=== PATIENT | female | born 1995 | race Caucasian/White ===

== ENCOUNTER 2018-09-05 18:06 | Emergency (ER) | payer SELFPAY ==
[~2018-09-05] VITALS: Ht 172.7 cm; Wt 74.8 kg
[2018-09-05] MEDS ORDERED: IV NORMAL SALINE 1000ML BAG 1,000 ML IV ONE (18:30)
[2018-09-05 18:38] LABS: BILIRUBIN,URINE NEGATIVE (NEG); CLARITY,URINE CLOUDY; COLOR,URINE YELLOW; NITRITE,URINE NEGATIVE (NEG); PH,URINE 6.5; PROTEIN,URINE 30 mg/dL (NEG-TRACE)
--- NOTE | 2018-09-05 18:42 | PHYS DOC ---
Past Medical History Past Medical History: Anxiety Additional Past Medical Histor: Drug abuse Past Surgical History: Appendectomy, Tubal ligation Additional Information: Nonsmoker Alcohol Use: None Drug Use: Methamphetamine Adult General Chief Complaint Chief Complaint: MULTIPLE COMPLAINTS HPI HPI 23-year-old female presents with 3 week history of intermittent episodes of p alpitations and right-sided numbness. Patient reports has been worse over the last 3-4 days. Reports she has been seen twice at [facility] in the emergency department and was diagnosed with anxiety/panic attacks. Patient reports she does think anxiety is causing some of her symptoms but is concerned that there might be something more. Patient does report symptoms seemed to worsen after patient uses methamphetamines. Patient also reports difficulty having a bowel movement. Denies known trauma. Denies . Reports her last menstrual period was approximately 3-1/2 weeks ago. Patient does report prior tubal ligation. Patient reports she has not followed with anyone after ER evaluations due to lack of insurance. She reports concern after looking up symptoms on [employer]. Review of Systems Review of Systems Constitutional: Denies fever or chills Eyes: Denies redness or eye pain HENT: Denies nasal congestion or sore throat Respiratory: Denies cough or shortness of breath Cardiovascular: Denies chest pain; reports prior palpitations which are now resolved GI: Denies abdominal pain, nausea, or vomiting; reports constipation. : Denies dysuria or hematuria Musculoskeletal: Denies back pain or joint pain Integument: Denies rash or skin lesions Neurologic: Denies headache or focal weakness; reports numbness/paresthesias to right arm and leg Complete systems were reviewed and found to be within normal limits, except as documented in this note. Current Medications Current Medications Current Medications Medications (Trade) Dose Ordered Sig/Devon Start Time Stop Time Status Last Admin Dose Admin Info (CONTRAST GIVEN -- Rx MONITORING) 1 each PRN DAILY PRN 09/05/18 20:30 09/07/18 20:29 Iohexol (Omnipaque 350 Mg/ml) 75 ml 1X ONCE 09/05/18 20:30 09/05/18 20:31 DC 09/05/18 20:49 75 ML Lorazepam (Ativan Inj) 0.5 mg 1X ONCE 09/05/18 20:45 09/05/18 20:46 DC 09/05/18 20:42 0.5 MG Sodium Chloride 1,000 ml @ 1,000 mls/hr 1X ONCE 09/05/18 18:30 09/05/18 19:29 DC 09/05/18 19:22 1,000 MLS/HR Allergies Allergies Allergies Coded Allergies Type Severity Reaction Last Updated Verified No Known Drug Allergies 09/05/18 No Physical Exam Physical Exam Constitutional: Well developed, well nourished, very anxious and hyperverbal, no n-toxic appearance HENT: Normocephalic, atraumatic, oropharynx moist Eyes: PERRL, EOMI, conjunctiva normal, no discharge Neck: Normal range of motion, no tenderness, supple Cardiovascular: Heart rate normal, regular rhythm Lungs & Thorax: Bilateral breath sounds clear to auscultation, no wheezing Abdomen: Soft, no tenderness, no rebound tenderness/guarding/distention Rectal: NO external hemorrhoid, scant hard stool noted in rectal vault, good rectal tone, retail salesperson- Allie EDT Skin: Warm, dry, no erythema, no rash Back: No tenderness, no CVA tenderness Extremities: No tenderness, ROM intact, no edema Neurologic: Alert and oriented X 3, normal motor function, no focal deficits noted, reports decreased sensation to right hand in comparison to left hand Psychologic: Affect anxious, judgement normal Current Patient Data Vital Signs Vital Signs Date Time Temp Pulse Resp B/P (MAP) Pulse Ox O2 Delivery O2 Flow Rate FiO2 09/05/18 19:00 97.8 100 20 138/89 (105) 100 Room Air 97.8 Lab Values Laboratory Tests Test 09/05/18 18:19 09/05/18 18:22 09/05/18 18:59 09/05/18 19:50 Urine Collection Type Void Urine Color Yellow Urine Clarity Cloudy Urine pH 6.5 Urine Specific Keller >=1.030 Urine Protein 30 mg/dL (NEG-TRACE) Urine Glucose (UA) Negative mg/dL (NEG) Urine Ketones (Stick) Negative mg/dL (NEG) Urine Blood Negative (NEG) Urine Nitrite Negative (NEG) Urine Bilirubin Negative (NEG) Urine Urobilinogen Dipstick 1.0 mg/dL (0.2 mg/dL) Urine Leukocyte Esterase Moderate (NEG) Urine RBC Occ /HPF (0-2) Urine WBC 20-40 /HPF (0-4) Urine Squamous Epithelial Cells Many /LPF Urine Bacteria Moderate /HPF (0-FEW) Urine Mucus Slight /LPF Urine Opiates Screen Neg (NEG) Urine Methadone Screen Neg (NEG) Urine Barbiturates Neg (NEG) Urine Phencyclidine Screen Neg (NEG) Urine Amphetamine/Methamphetamine Pos (NEG) Urine Benzodiazepines Screen Neg (NEG) Urine Cocaine Screen Neg (NEG) Urine Cannabinoids Screen Neg (NEG) Urine Ethyl Alcohol Neg (NEG) POC Urine HCG, Qualitative Hcg negative (Negative) White Blood Count 5.9 x10^3/uL (4.0-11.0) Red Blood Count 4.23 x10^6/uL (3.50-5.40) Hemoglobin 11.5 g/dL (12.0-15.5) L Hematocrit 34.5 % (36.0-47.0) L Mean Corpuscular Volume 82 fL (79-100) Mean Corpuscular Hemoglobin 27 pg (25-35) Mean Corpuscular Hemoglobin Concent 33 g/dL (31-37) Red Cell Distribution Width 15.1 % (11.5-14.5) H Platelet Count 223 x10^3/uL (140-400) Neutrophils (%) (Auto) 50 % (31-73) Lymphocytes (%) (Auto) 39 % (24-48) Monocytes (%) (Auto) 6 % (0-9) Eosinophils (%) (Auto) 5 % (0-3) H Basophils (%) (Auto) 1 % (0-3) Neutrophils # (Auto) 2.9 x10^3uL (1.8-7.7) Lymphocytes # (Auto) 2.3 x10^3/uL (1.0-4.8) Monocytes # (Auto) 0.4 x10^3/uL (0.0-1.1) Eosinophils # (Auto) 0.3 x10^3/uL (0.0-0.7) Basophils # (Auto) 0.0 x10^3/uL (0.0-0.2) Prothrombin Time 14.5 SEC (11.7-14.0) H Prothrombin Time INR 1.2 (0.8-1.1) H PTT 31 SEC (24-38) Lactic Acid Level 1.0 mmol/L (0.4-2.0) Sodium Level 144 mmol/L (136-145) Potassium Level 3.7 mmol/L (3.5-5.1) Chloride Level 109 mmol/L (98-107) H Carbon Dioxide Level 24 mmol/L (21-32) Anion Gap 11 (6-14) Blood Urea Nitrogen 10 mg/dL (7-20) Creatinine 0.9 mg/dL (0.6-1.0) Estimated GFR (Cockcroft-Gault) 78.3 BUN/Creatinine Ratio 11 (6-20) Glucose Level 88 mg/dL (70-99) Calcium Level 8.4 mg/dL (8.5-10.1) L Magnesium Level 1.7 mg/dL (1.8-2.4) L Total Bilirubin 0.4 mg/dL (0.2-1.0) Aspartate Amino Transferase (AST) 15 U/L (15-37) Alanine Aminotransferase (ALT) 19 U/L (14-59) Alkaline Phosphatase 58 U/L (46-116) Creatine Kinase 98 U/L (26-192) Creatine Kinase MB (Mass) 1.5 ng/mL (0.0-3.6) Creatine Kinase MB Relative Index 1.5 % (0-4) Troponin I Quantitative < 0.017 ng/mL (0.000-0.055) Total Protein 6.2 g/dL (6.4-8.2) L Albumin 3.6 g/dL (3.4-5.0) Albumin/Globulin Ratio 1.4 (1.0-1.7) Laboratory Tests 09/05/18 18:59 Laboratory Tests 09/05/18 19:50 EKG EKG @1839 NSR at 91bpm, NO ST elevation, QRS 82ms, QT/QTc 366/452ms Radiology/Procedures Radiology/Procedures PROCEDURE: CT ANGIOGRAPHY HEAD AND NECK CTA of the head and neck with contrast 09/05/2018 Clinical history: Right-sided numbness. Headaches. Technique: After the intravenous administration 75 cc of Omnipaque 350, contiguous, 0.625 mm axial sections were obtained through the upper chest, neck and head. Multiplanar 3-D MIP and volume rendered 3-D reconstructed images were obtained. One or more of the following individualized dose reduction techniques were utilized for this study: 1. Automated exposure control. 2. Adjustment of the mA and/or kV according to patient size. 3. Use of iterative reconstruction technique. Findings: The origins of the brachiocephalic, left common carotid and left subclavian arteries from the thoracic aortic arch are patent. The origins of the right common carotid artery and both vertebral arteries are patent. The common carotid arteries, carotid bifurcations and internal carotid arteries are within normal limits. No areas stenosis or occlusion is seen. The vertebral arteries are codominant. Both vertebral arteries demonstrate normal antegrade flow. No area stenosis or occlusion is seen. Intracranially the petrous, cavernous and supraclinoid portions of the internal carotid arteries are within normal limits. The distal vertebral arteries and basilar artery are within normal limits. The anterior, middle and posterior cerebral arteries and their branches are within normal limits. No areas stenosis or occlusion is seen. No intracranial aneurysm is noted. The major dural venous sinuses are patent. No area of abnormal contrast enhancement is seen. No acute soft tissue abnormality is seen involving the neck. The osseous structures are grossly intact. Impression: Negative study. Stenosis calculation for CTA are based on measurement of the distal internal carotid artery diameter in accordance with the NASCET methodology. Electronically signed by: David Darnell MD (09/05/2018 10:02 PM) [facility] Course & Med Decision Making Course & Med Decision Making Pertinent Labs and Imaging studies reviewed. (See chart for details) Patient with past medical history of methamphetamine abuse and anxiety presents for reevaluation after 2 prior evaluations at [facility] ED for right-sided numbness/paresthesias. Patient does report recent methamphetamine use 48 hours ago. Denies known trauma. Patient does seem very anxious and is hyperverbal. NIHSS 1 due to reported sensory change to right hand. EKG stable. Labs obtained and posted to chart. CTA head/carotids without acute process. Patient stable for discharge with outpatient follow-up with PCP/neurology. Neurology referral provided. Discussed findings and plan with patient and family, who acknowledge understanding and agreement. Dragon Disclaimer Dragon Disclaimer This electronic medical record was generated, in whole or in part, using a voice recognition dictation system. Departure Departure Impression: Primary Impression: Paresthesia Additional Impressions: Methamphetamine abuse Anxiety Disposition: 01 HOME, SELF-CARE Condition: STABLE Referrals: NO PCP (PCP) SEVEN COBOS MD Patient Instructions: Anxiety and Panic Attacks, [id number], Paresthesia, [id number] Scripts Lorazepam (ATIVAN) 0.5 Mg Tablet 0.5 MG PO TID PRN for ANXIETY, #6 TAB Prov: ZAINAB STEPHENSON DO 09/05/18 NIHSS Stroke Scale NIH Stroke Scale: NIH Stroke Scale Response (Comments) Value Level of Consciousness: 0 Alert/Responsive 0 LOC Questions: 0 Answers both correctly 0 LOC Commands: 0 Performs both tasks 0 Best Gaze: 0 Normal 0 Visual: 0 No visual loss 0 Facial Palsy: 0 Normal, symmetrical 0 Motor - Left Arm 0 No drift 0 Motor - Right Arm 0 No drift 0 Motor - Left Leg 0 No drift 0 Motor: Right Leg 0 No drift 0 Limb Ataxia: 0 Absent 0 Sensory: 1 Mid to moderate loss (right hand) 1 Best Language: 0 Normal 0 Dysathria: 0 Normal 0 Extinction and Inattention: 0 Normal 0 Total 1 Problem Qualifiers ZAINAB STEPHENSON DO September 05, 2018 18:42
[2018-09-05 18:44] LABS: AMPHETAMINE/METHAMPHETAMINE POS (NEG); BARBITURATES NEG (NEG); BENZODIAZEPINES NEG (NEG); CANNABINOIDS NEG (NEG); COCAINE NEG (NEG); METHADONE NEG (NEG); OPIATES NEG (NEG); PHENCYCLIDINE NEG (NEG)
[2018-09-05 18:47] LABS: BACTERIA,URINE MODERATE /HPF (0-FEW); RBC,URINE OCC /HPF (0-2); SQUAMOUS EPITHELIAL CELL,UR MANY /LPF; WBC,URINE 20-40 /HPF (0-4)
[2018-09-05 19:10] LABS: BASO % 1 % (0-3); EOS # 0.3 x10^3/uL (0.0-0.7); EOS % 5 % (0-3); HEMATOCRIT 34.5 % (36.0-47.0); HEMOGLOBIN 11.5 g/dL (12.0-15.5); LYMPH # 2.3 x10^3/uL (1.0-4.8); LYMPH % 39 % (24-48); MEAN CORPUSCULAR HEMOGLOBIN 27 pg (25-35); MEAN CORPUSCULAR HGB CONC 33 g/dL (31-37); MEAN CORPUSCULAR VOLUME 82 fL (79-100); MONO # 0.4 x10^3/uL (0.0-1.1); MONO % 6 % (0-9); NEUT # 2.9 x10^3uL (1.8-7.7); NEUT % 50 % (31-73); PLATELET COUNT 223 x10^3/uL (140-400); RED BLOOD COUNT 4.23 x10^6/uL (3.50-5.40); RED CELL DISTRIBUTION WIDTH 15.1 % (11.5-14.5); WHITE BLOOD COUNT 5.9 x10^3/uL (4.0-11.0)
[2018-09-05 19:24] LABS: PROTHROMBIN TIME PATIENT 14.5 SEC (11.7-14.0)
[2018-09-05 20:06] LABS: CALCIUM 8.4 mg/dL (8.5-10.1); CREATININE 0.9 mg/dL (0.6-1.0); GFR 78.3; POTASSIUM 3.7 mmol/L (3.5-5.1)
[2018-09-05 20:12] LABS: ALBUMIN 3.6 g/dL (3.4-5.0); ALBUMIN/GLOBULIN RATIO 1.4 (1.0-1.7); MAGNESIUM 1.7 mg/dL (1.8-2.4); TOTAL BILIRUBIN 0.4 mg/dL (0.2-1.0); TOTAL PROTEIN 6.2 g/dL (6.4-8.2)
[2018-09-05] MEDS ORDERED: CONTRAST GIVEN. MC PRN (20:30)
[2018-09-05] MEDS ORDERED: IOHEXOL 350 MG/ML 100 ML VIAL. IV ONE (20:30)
[2018-09-05 21:20] VITALS: BP 134/63
--- NOTE | 2018-09-05 22:04 | RAD ---
CTA of the head and neck with contrast 09/05/2018 Clinical history: Right-sided numbness. Headaches. Technique: After the intravenous administration 75 cc of Omnipaque 350, contiguous, 0.625 mm axial sections were obtained through the upper chest, neck and head. Multiplanar 3-D MIP and volume rendered 3-D reconstructed images were obtained. One or more of the following individualized dose reduction techniques were utilized for this study: 1. Automated exposure control. 2. Adjustment of the mA and/or kV according to patient size. 3. Use of iterative reconstruction technique. Findings: The origins of the brachiocephalic, left common carotid and left subclavian arteries from the thoracic aortic arch are patent. The origins of the right common carotid artery and both vertebral arteries are patent. The common carotid arteries, carotid bifurcations and internal carotid arteries are within normal limits. No areas stenosis or occlusion is seen. The vertebral arteries are codominant. Both vertebral arteries demonstrate normal antegrade flow. No area stenosis or occlusion is seen. Intracranially the petrous, cavernous and supraclinoid portions of the internal carotid arteries are within normal limits. The distal vertebral arteries and basilar artery are within normal limits. The anterior, middle and posterior cerebral arteries and their branches are within normal limits. No areas stenosis or occlusion is seen. No intracranial aneurysm is noted. The major dural venous sinuses are patent. No area of abnormal contrast enhancement is seen. No acute soft tissue abnormality is seen involving the neck. The osseous structures are grossly intact. Impression: Negative study. Stenosis calculation for CTA are based on measurement of the distal internal carotid artery diameter in accordance with the NASCET methodology. Electronically signed by: David Darnell MD (09/05/2018 10:02 PM) [facility]
[2018-09-05] MEDS ORDERED: LORA0.5T96 PO (23:01)
--- NOTE | 2018-09-06 06:09 | EKG ---
[facility] [address] [place] [address] Test Date: 2018-09-05 Test Time: 18:39:12 Pat Name: ANTONIO PENDLETON Department: Room: Gender: F [employer]: : [id number] Requested By: ZAINAB STEPHENSON Order Number: [id number] Reading MD: Measurements Intervals [place] Rate: 91 P: 49 MT: 126 QRS: 63 QRSD: 82 T: 28 QT: 366 QTc: 452 Interpretive Statements SINUS RHYTHM NO SPECIFIC ECG ABNORMALITIES RI6.01 No previous ECG available for comparison
== END 2018-09-05 23:05 | disposition home or self-care (01) ==
LOC: ER 18:06
DX: F15.20 Other stimulant dependence, uncomplicated (principal); F41.9 Anxiety disorder, unspecified; R20.2 Paresthesia of skin; Z90.89 Acquired absence of other organs; Z98.51 Tubal ligation status
CPT/HCPCS: 36415; 70496; 70498; 80053; 80307; 81001; 81025; 82553; 83605; 83735; 84484; 85025; 85610; 85730; 87086; 93005; 96374; 99285; J2060; J7030; Q9967